=== PATIENT | male | born 1955 | race Caucasian/White ===

== ENCOUNTER 2018-07-19 06:24 | Day surgery (SDC) | payer BC ==
[2018-07-19] VITALS (8 sets, daily range): BP systolic 110–121; BP diastolic 68–76
[~2018-07-19] VITALS: Ht 188 cm; Wt 89.7 kg
[~2018-07-19 06:24] MED LIST: ATOR10TA87 PO; albuterol 2.5 MG/3 ML nebule NEB ONE; cefazolin/dext.iso 2gm/50ml 50 ML IV ONE; famotidine 20mg tablet PO ONE; ringers solution, lacted 1,000 ML IV SCH
[2018-07-19] MEDS ORDERED: ringers solution, lacted 1,000 ML IV SCH (07:36)
[2018-07-19] MEDS ORDERED: proCHLORperazine 10 MG/2 ml inj IV PRN (07:40)
[2018-07-19] MEDS ORDERED: meperidine/PF 25mg/ml syringe IV PRN ×3 (07:40)
[2018-07-19] MEDS ORDERED: morphine 4 MG/ML inj SYRINge IV PRN ×2 (07:40)
[2018-07-19] MEDS ORDERED: ondansetron/PF 4mg/2ml inj IV PRN (07:40)
[2018-07-19 07:51] LABS: BASOPHILS % (AUTO) 0.8 % (0-1); EOSINOPHILS # (AUTO) 0.3 X10'3 (0-0.9); EOSINOPHILS % (AUTO) 4.8 % (0-6); HEMATOCRIT 42.3 % (42.0-52.0); HEMOGLOBIN 14.3 g/dl (14.0-17.9); LYMPHOCYTES # (AUTO) 1.2 X10'3 (1.1-4.8); LYMPHOCYTES % (AUTO) 19.8 % (21-51); MEAN CORPUSCULAR HGB CONC 33.9 g/dL (33.0-36.5); MEAN CORPUSCULAR VOLUME 88.5 FL (78-98); MEAN PLATELET VOLUME 7.8 FL (7.4-10.4); MONOCYTES # (AUTO) 0.4 X10'3 (0-0.9); MONOCYTES % (AUTO) 7.4 % (2-12); NEUTROPHILS % (AUTO) 67.2 % (42-75); PLATELET COUNT 232 X10'3 (140-440); RED BLOOD COUNT 4.78 X10'6 (4.70-6.10); RED CELL DISTRIBUTION WIDTH 13.6 % (11.5-14.5); WHITE BLOOD COUNT 5.9 X10'3 (4.5-11.0)
[2018-07-19 08:01] LABS: ALANINE AMINOTRANSFERASE 23 U/L (12-78); ALBUMIN 3.6 G/DL (3.4-5.0); ALBUMIN/GLOBULIN RATIO 1.1 (1.1-1.5); ALKALINE PHOSPHATASE 54 IU/L (46-116); ANION GAP 11 (8-16); ASPARTATE AMINO TRANSFERASE 17 U/L (10-37); BILIRUBIN,TOTAL 0.5 MG/DL (0.1-1.0); BLOOD UREA NITROGEN 19 MG/DL (7-18); BUN/CREATININE RATIO 24.7 (5.4-32.0); CALCIUM 8.8 MG/DL (8.5-10.1); CHLORIDE 105 MMOL/L (99-107); CREATININE 0.77 MG/DL (0.60-1.10); GLUCOSE 105 MG/DL (70-104); POTASSIUM 4.3 MMOL/L (3.5-5.1); SODIUM 140 MMOL/L (135-145); TOTAL CARBON DIOXIDE 24.4 MMOL/L (24-32); TOTAL PROTEIN 6.9 G/DL (6.4-8.2); eGFR > 90 ML/MIN
[2018-07-19] MEDS ORDERED: LIDOcaine 1% 30ml preserv. free vial ONE (09:31)
[2018-07-19] MEDS ORDERED: ceFAZolin 1000mg inj ONE (09:31)
[2018-07-19] MEDS ORDERED: BUPIVAcaine/PF 2.5mg/ml (0.25%) 10ml vial ONE (09:31)
[2018-07-19] MEDS ORDERED: midazolam 2 mg/2 ml injection ONE (09:42)
[2018-07-19] MEDS ORDERED: fentaNYL/PF 50MCG/1 ML 2ML syringe ONE (09:42)
[2018-07-19] MEDS ORDERED: propofol inj 20 ML IV ONE (09:42)
[2018-07-19] MEDS ORDERED: LIDOcaine 2% (20mg/ml) 5ml vial ONE (09:42)
[2018-07-19] MEDS ORDERED: dexamethasone sod phosphate 10mg/ml inj ONE (09:50)
[2018-07-19] MEDS ORDERED: sevoflurane 250ml liquid IH ONE (09:50)
[2018-07-19] MEDS ORDERED: meperidine/PF 50mg/ml syringe ONE (10:14)
[2018-07-19] MEDS ORDERED: ketorolac trometh. 30mg/ml inj. ONE (10:45)
--- NOTE | 2018-07-19 11:18 | NUR ---
ARRIVED IN PACU VIA GURNEY FROM OR WITH O2 ON, ORAL AIRWAY INPLACE-WHICH HE SPIT OUT ABOUT 1MIN AFTER ARRIVAL IN PACU, AND DR LYNCH IN ATTENDANCE. REPORT RECEIVED. VS STABLE.
--- NOTE | 2018-07-19 12:18 | NUR ---
JOÃO LIQUIDS. VS STABLE. FAMILY AT BEDSIDE
--- NOTE | 2018-07-19 12:46 | NUR ---
UP AMBULATING AROUND ROOM AND PACU. STEADY ON FEET
== END 2018-07-19 12:48 | disposition home or self-care (01) ==
LOC: PAS 06:24
PROVIDERS: ATTEND Surgery
DX: K40.90 Unilateral inguinal hernia, without obstruction or gangrene, not specified as recurrent (principal); F17.210 Nicotine dependence, cigarettes, uncomplicated; Z72.89 Other problems related to lifestyle; Z79.899 Other long term (current) drug therapy
CPT/HCPCS: 36415; 49505; 80053; 85025; 93005; A6449; C1781; J0690; J1100; J1885; J2001; J2175; J2250; J2704; J3010; J3490; J7120; A7000